=== PATIENT | male | born 1970 | race Caucasian/White ===

== ENCOUNTER 2018-06-15 06:41 | Inpatient (IN) | payer OTHER ==
[~2018-06-15] VITALS: Ht 180.3 cm; Wt 100.5 kg
[~2018-06-15 06:41] MED LIST: EXCEDRIN MIGRA1 EAC3 PO; NEXIUM40 MG PO; OMEPRAZOLE40 M1 PO; PERCOCET 5/31 TABLET PO; PRILOSEC40 MG PO; RANITIDINE HCL300 MG PO
[2018-06-15 07:19] LABS: HEMATOCRIT 47.1 % (38.0-50.0); HEMOGLOBIN 16.3 G/DL (12.5-16.6); MCH 28.2 PG (29.0-34.0); MCHC 34.6 G/DL (30.0-36.0); MCV 81.5 FL (86-99); PLATELET COUNT 182 K/uL (156-360); RBC DIS.WIDTH-CV 12.7 % (11.8-14.6); RBC DIS.WIDTH-SD 37.3 % (39-53); RED BLOOD COUNT 5.78 M/uL (4.00-5.50); WHITE BLOOD COUNT 5.1 K/uL (4.1-10.2)
[2018-06-15 07:48] LABS: TROP-I INTERPRETATION NEGATIVE; TROPONIN-I 0.02 ng/mL (0.0-0.30)
[2018-06-15 07:49] LABS: ALBUMIN 4.1 G/DL (3.2-4.8); CHLORIDE 99 MEQ/L (99-109); POTASSIUM 4.1 MEQ/L (3.7-5.4); SODIUM 133 MEQ/L (136-147); TOTAL BILIRUBIN 0.7 MG/DL (0.0-1.0)
[2018-06-15 07:54] LABS: ALKALINE PHOSPHATASE 55 IU/L (3-129); ALT (GPT) 24 IU/L (3-49); AST (GOT) 16 IU/L (2-34); GFR ESTIMATE (CALCULATED) > 59 mL/min/ (58.99-99999); GLUCOSE 121 mg/dL (70-99); LIPASE 5 U/L (1.0-51.0); TOTAL PROTEIN 6.7 G/DL (6.4-8.3); UREA NITROGEN (BUN) 11 mg/dL (9-23)
[2018-06-15 10:00] LABS: APPEARANCE CLEAR ((CLEAR)); BILIRUBIN NEGATIVE; BLOOD NEGATIVE; COLOR STRAW ((YELLOW)); GLUCOSE (STRIP) NEGATIVE; KETONES NEGATIVE; LEUKOCYTES NEGATIVE; NITRITE NEGATIVE; PROTEIN (STRIP) NEGATIVE; SPECIFIC GRAVITY 1.038 (1.000-1.030); UROBILINOGEN 0.2 MG/DL (0.2-1.0)
[2018-06-15 12:29] VITALS: BP 131/64
[2018-06-15 15:12] VITALS: BP 115/71
[2018-06-15 23:46] VITALS: BP 112/82
[2018-06-16 06:05] LABS: HEMATOCRIT 38.5 % (38.0-50.0); MCHC 33.8 G/DL (30.0-36.0); PLATELET COUNT 162 K/uL (156-360); RBC DIS.WIDTH-CV 12.8 % (11.8-14.6); RBC DIS.WIDTH-SD 38.5 % (39-53); WHITE BLOOD COUNT 3.3 K/uL (4.1-10.2)
[2018-06-16 06:07] LABS: RED BLOOD COUNT 4.64 M/uL (4.00-5.50)
[2018-06-16 06:40] LABS: CHLORIDE 107 MEQ/L (99-109); CREATININE 0.8 MG/DL (0.6-1.3); GFR ESTIMATE (CALCULATED) > 59 mL/min/ (58.99-99999); POTASSIUM 3.5 MEQ/L (3.7-5.4); UREA NITROGEN (BUN) 13 mg/dL (9-23)
[2018-06-16 06:45] LABS: GLUCOSE 83 mg/dL (70-99); SODIUM 140 MEQ/L (136-147)
[2018-06-16 07:18] VITALS: BP 104/60
[2018-06-16 15:55] VITALS: BP 112/58
[2018-06-17 00:22] VITALS: BP 107/55
[2018-06-17 05:40] LABS: HEMATOCRIT 37.5 % (38.0-50.0); HEMOGLOBIN 12.9 G/DL (12.5-16.6); MCHC 34.4 G/DL (30.0-36.0); MCV 81.3 FL (86-99); PLATELET COUNT 168 K/uL (156-360); RBC DIS.WIDTH-CV 12.3 % (11.8-14.6); RBC DIS.WIDTH-SD 36.4 % (39-53); RED BLOOD COUNT 4.61 M/uL (4.00-5.50); WHITE BLOOD COUNT 3.8 K/uL (4.1-10.2)
[2018-06-17 06:09] LABS: CHLORIDE 109 MEQ/L (99-109); CREATININE 0.8 MG/DL (0.6-1.3); GFR ESTIMATE (CALCULATED) > 59 mL/min/ (58.99-99999); GLUCOSE 75 mg/dL (70-99); POTASSIUM 4.2 MEQ/L (3.7-5.4); SODIUM 142 MEQ/L (136-147); UREA NITROGEN (BUN) 13 mg/dL (9-23)
[2018-06-17 07:39] VITALS: BP 124/64
[2018-06-17 16:13] VITALS: BP 128/62
[2018-06-18 00:32] VITALS: BP 131/76
[2018-06-18 06:22] LABS: CHLORIDE 106 MEQ/L (99-109); CREATININE 0.9 MG/DL (0.6-1.3); GFR ESTIMATE (CALCULATED) > 59 mL/min/ (58.99-99999); POTASSIUM 4.1 MEQ/L (3.7-5.4); SODIUM 141 MEQ/L (136-147); UREA NITROGEN (BUN) 8 mg/dL (9-23)
[2018-06-18 06:25] LABS: GLUCOSE 98 mg/dL (70-99)
[2018-06-18 07:38] VITALS: BP 111/70
== END 2018-06-18 14:25 | disposition home or self-care (01) | DRG 390 ==
LOC: EME 06:41 → 5SOUTH 10:38 → EDOF 10:38 → ENRESERV 10:40 → CANRESERV 10:40 → ENRESERV 11:23 → 5SOUTH 12:14
PROVIDERS: Family Medicine; Hospitalist; Nurse Practitioner Family
DX: K56.600 Partial intestinal obstruction, unspecified as to cause (principal); E86.0 Dehydration; E87.6 Hypokalemia; I95.1 Orthostatic hypotension; G43.909 Migraine, unspecified, not intractable, without status migrainosus; K21.9 Gastro-esophageal reflux disease without esophagitis; G89.29 Other chronic pain; R00.0 Tachycardia, unspecified; R20.2 Paresthesia of skin; E66.9 Obesity, unspecified; Z68.30 Body mass index [BMI] 30.0-30.9, adult
CPT/HCPCS: 74018; 74019; 74177; 80048; 80053; 81003; 83690; 84484; 85027; 93005; 99281; 99284; C9113; J1885; J3010; J3480; J7030